=== PATIENT | female | born 1980 | race Caucasian/White ===

== ENCOUNTER 2016-12-15 15:12 | Emergency (ER) | payer MEDICAID ==
[~2016-12-15] VITALS: Ht 165.1 cm; Wt 106.2 kg
[2016-12-15 16:21] VITALS: BP 136/100
== END 2016-12-15 16:23 | disposition home or self-care (01) ==
LOC: ED 16:10
DX: K08.89 Other specified disorders of teeth and supporting structures (principal); F17.210 Nicotine dependence, cigarettes, uncomplicated; I10 Essential (primary) hypertension; G43.909 Migraine, unspecified, not intractable, without status migrainosus
CPT/HCPCS: 99283

== ENCOUNTER 2017-03-23 21:43 | Emergency (ER) | payer MEDICAID ==
[~2017-03-23] VITALS: Ht 165.1 cm; Wt 103.4 kg
[2017-03-23 21:46] VITALS: BP 176/130
== END 2017-03-23 22:39 | disposition home or self-care (01) ==
LOC: ED 22:01
DX: K02.9 Dental caries, unspecified (principal); H92.02 Otalgia, left ear; I10 Essential (primary) hypertension; G43.909 Migraine, unspecified, not intractable, without status migrainosus
CPT/HCPCS: 99283